=== PATIENT | female | born 1965 | race Caucasian/White ===

== ENCOUNTER 2017-04-10 00:31 | Emergency (ER) | payer MEDICAID, OTHER ==
[~2017-04-10] VITALS: Ht 165.1 cm; Wt 77.3 kg
[~2017-04-10 00:31] MED LIST: DIVA500T52 PO; ZIPR40CA2 PO
[2017-04-10] MEDS ORDERED: ARIP5TAB8 PO (00:39)
[2017-04-10 01:54] LABS: BASOPHILS # (AUTO) 0.04 K/uL (0.00-0.20); BASOPHILS % (AUTO) 0.6 % (0.0-2.0); EOSINOPHILS # (AUTO) 0.09 K/uL (0.00-0.70); EOSINOPHILS % (AUTO) 1.18 % (1.0-6.0); HEMATOCRIT 42.6 % (36-46); LYMPHOCYTES # (AUTO) 2.4 K/uL (1.0-4.8); LYMPHOCYTES % (AUTO) 33.2 % (22.0-44.0); MEAN CORPUSCULAR HEMOGLOBIN 29.6 pg (26.0-34.0); MEAN CORPUSCULAR HGB CONC 32.9 G/dL (31.0-37.0); MEAN CORPUSCULAR VOLUME 90 fL (80-100); MONOCYTES # (AUTO) 0.5 K/uL (0.1-1.0); MONOCYTES % (AUTO) 7.3 % (2.0-9.0); NEUTROPHILS # (AUTO) 4.2 K/uL (1.8-7.7); NEUTROPHILS % (AUTO) 57.7 % (40.0-70.0); PLATELET COUNT (AUTO) 261 K/uL (150-450); RED BLOOD CELL COUNT(AUTO) 4.74 MIL/uL (4.00-5.20); RED CELL DISTRIBUTION WIDTH 13.1 % (11.5-14.5)
[2017-04-10 02:06] LABS: AMPHET/METH SCREEN,URINE NEGATIVE (NEGATIVE); BARBITURATE SCREEN, URINE NEGATIVE (NEGATIVE); BENZODIAZEPINES SCREEN,URINE NEGATIVE (NEGATIVE); CANNABINOID SCREEN,URINE NEGATIVE (NEGATIVE); COCAINE SCREEN,URINE NEGATIVE (NEGATIVE); METHADONE SCREEN, URINE NEGATIVE (NEGATIVE); OPIATE SCREEN,URINE NEGATIVE (NEGATIVE)
[2017-04-10 02:09] LABS: ALANINE AMINOTRANSFERASE 48 U/L (12-78); ALKALINE PHOSPHATASE 81 U/L (46-116); ANION GAP 6 mmol/L (8-16); ASPARTATE AMINOTRANSFERASE 30 U/L (15-37); BILIRUBIN,TOTAL 0.8 mg/dL (0.1-1.0); CARBON DIOXIDE 31 mmol/L (22-29); CHLORIDE 103 mmol/L (98-107); CREATININE 0.86 mg/dL (0.60-1.30); GLOMERULAR FILTR. RATE CALC > 60 mL/min (>60); GLUCOSE,RANDOM 98 mg/dL (70-110); POTASSIUM 3.6 mmol/L (3.5-5.1); SODIUM SERUM 140 mmol/L (136-145); TOTAL PROTEIN, SERUM 7.6 g/dL (6.4-8.2); UREA NITROGEN, BLOOD 11 mg/dL (7-18)
[2017-04-10 02:12] LABS: PHENCYCLIDINE SCREEN,URINE NEGATIVE (NEGATIVE)
[2017-04-10] MEDS ORDERED: HALOPERIDOL 5 MG TABLET PO ONE (02:45)
[2017-04-10] MEDS ORDERED: LORazepam 2 MG TABLET PO ONE (02:45)
[2017-04-10 02:46] VITALS: BP 137/89
== END 2017-04-10 02:57 | disposition home or self-care (01) ==
LOC: EMS 00:31
DX: F20.0 Paranoid schizophrenia (principal); F22 Delusional disorders; F17.210 Nicotine dependence, cigarettes, uncomplicated; I10 Essential (primary) hypertension
CPT/HCPCS: 36415; 80053; 80307; 85025; 99284; 99406; G0480

== ENCOUNTER 2017-04-10 14:42 | Inpatient (IN) | payer MEDICAID, OTHER ==
[~2017-04-10] VITALS: Ht 154.9 cm; Wt 65.4 kg
[~2017-04-10 14:42] MED LIST changes: +ARIP5TAB8 PO
[2017-04-10] MEDS ORDERED: HALOPERIDOL 5 MG TABLET PO PRN (18:15)
[2017-04-10] MEDS ORDERED: LORazepam 2 MG TABLET PO PRN (18:15)
[2017-04-10] MEDS ORDERED: ZOLPIDEM TARTRATE 10 MG TABLET PO PRN (18:15)
[2017-04-10 18:35] VITALS: BP 147/88
[2017-04-10 19:00] VITALS: BP 138/88
[2017-04-10] MEDS ORDERED: PNEUMOCOCCAL VACCINE POLYVALENT 0.5 ML VIAL [PPSV23] IM ONE (19:00)
[2017-04-10] MEDS ORDERED: INFLUENZA VIRUS VACCINE QVS 2017-18 (3YR+)/PF 60 MCG/0.5 ML SYRINGE IM ONE (19:00)
[2017-04-10] MEDS: ARIPiprazole 10 MG TABLET PO SCH (20:14)
[2017-04-11 01:45] VITALS: BP 122/68
[2017-04-11 08:14] LABS: BASOPHILS % (AUTO) 0.5 % (0.0-2.0); EOSINOPHILS % (AUTO) 1.2 % (1.0-6.0); HEMATOCRIT 40.1 % (36-46); HEMOGLOBIN 13.6 g/dL (12.0-16.0); LYMPHOCYTES # (AUTO) 1.8 K/uL (1.0-4.8); MEAN CORPUSCULAR HEMOGLOBIN 30.2 pg (26.0-34.0); MEAN CORPUSCULAR HGB CONC 33.9 G/dL (31.0-37.0); MEAN CORPUSCULAR VOLUME 89 fL (80-100); MONOCYTES # (AUTO) 0.4 K/uL (0.1-1.0); MONOCYTES % (AUTO) 6.8 % (2.0-9.0); NEUTROPHILS # (AUTO) 3.1 K/uL (1.8-7.7); NEUTROPHILS % (AUTO) 57.5 % (40.0-70.0); PLATELET COUNT (AUTO) 253 K/uL (150-450); RED CELL DISTRIBUTION WIDTH 13.1 % (11.5-14.5)
[2017-04-11 08:16] LABS: HEMOGLOBIN A1C 6.1 % (4.5-6.2)
[2017-04-11 08:33] LABS: AMPHET/METH SCREEN,URINE NEGATIVE (NEGATIVE); APPEARANCE,URINE TURBID (CLEAR); BARBITURATE SCREEN, URINE NEGATIVE (NEGATIVE); BENZODIAZEPINES SCREEN,URINE NEGATIVE (NEGATIVE); CANNABINOID SCREEN,URINE NEGATIVE (NEGATIVE); COCAINE SCREEN,URINE NEGATIVE (NEGATIVE); GLUCOSE, URINE (UA) NEGATIVE (NEGATIVE); KETONES,URINE TRACE mg/dL (NEGATIVE); LEUKOCYTE ESTERASE ,URINE NEGATIVE (NEGATIVE); METHADONE SCREEN, URINE NEGATIVE (NEGATIVE); NITRATE,URINE NEGATIVE (NEGATIVE); OCCULT BLOOD,URINE NEGATIVE (NEGATIVE); OPIATE SCREEN,URINE NEGATIVE (NEGATIVE); PHENCYCLIDINE SCREEN,URINE NEGATIVE (NEGATIVE); PROTEIN,URINE NEGATIVE (NEGATIVE)
[2017-04-11 08:39] VITALS: BP 103/68
[2017-04-11 08:47] LABS: BILIRUBIN,URINE PRELIM. POSITIVE (NEGATIVE)
[2017-04-11 08:51] LABS: ALANINE AMINOTRANSFERASE 39 U/L (12-78); ALBUMIN 3.5 g/dL (3.4-5.0); ALKALINE PHOSPHATASE 68 U/L (46-116); ANION GAP 8 mmol/L (8-16); ASPARTATE AMINOTRANSFERASE 21 U/L (15-37); BILIRUBIN,TOTAL 0.6 mg/dL (0.1-1.0); CALCIUM, TOTAL 8.6 mg/dL (8.8-10.5); CARBON DIOXIDE 28 mmol/L (22-29); CHLORIDE 104 mmol/L (98-107); CHOL/HDL RATIO 2.3 (3.9-5.7); CHOLESTEROL 176 mg/dL (131-200); CREATININE 0.85 mg/dL (0.60-1.30); FREE T4 (FREE THYROXINE) 1.21 ng/dL (0.76-1.46); GLOMERULAR FILTR. RATE CALC > 60 mL/min (>60); GLUCOSE,RANDOM 102 mg/dL (70-110); HDL CHOLESTEROL 76 mg/dL (40-60); LDL CHOL (CALC.) 91 mg/dL (0-130); SODIUM SERUM 140 mmol/L (136-145); THYROID STIMULATING HORMONE 0.52 uIU/mL (0.36-3.74); TOTAL PROTEIN, SERUM 6.5 g/dL (6.4-8.2); TRIGLYCERIDES 44 mg/dL (15-150); UREA NITROGEN, BLOOD 16 mg/dL (7-18)
[2017-04-11 08:56] LABS: BACTERIA,URINE Few /HPF (None Seen); CALCIUM OXALATE CRYSTALS,UR Few /LPF (None Seen); RBC,URINE None Seen /HPF (0-2); SQUAMOUS EPITHELIAL CELL,UR Few /LPF (None Seen); WBC,URINE None Seen /HPF (0-5)
[2017-04-11 08:57] LABS: AMORPHOUS SEDIMENT,UR Many /LPF (None Seen)
[2017-04-11] MEDS: ARIPiprazole 10 MG TABLET PO SCH (08:57)
[2017-04-11] MEDS ORDERED: IBUPROFEN 400 MG TABLET PO PRN (12:00)
[2017-04-11] MEDS ORDERED: ACETAMINOPHEN 325 MG TABLET PO PRN (12:00)
[2017-04-11 16:17] VITALS: BP 129/74
[2017-04-12 01:03] VITALS: BP 102/63
[2017-04-12 08:05] VITALS: BP 105/74
[2017-04-12] MEDS ORDERED: ARIPiprazole 15 MG TABLET PO SCH (09:00)
[2017-04-12 16:09] VITALS: BP 116/74
[2017-04-13 00:20] VITALS: BP 112/68
[2017-04-13 08:19] VITALS: BP 110/65
[2017-04-13] MEDS: ARIPiprazole 10 MG TABLET PO SCH (08:36)
[2017-04-13 16:36] VITALS: BP 129/85
[2017-04-14 00:40] VITALS: BP 118/62
[2017-04-14 08:18] VITALS: BP 95/60
[2017-04-14] MEDS: ARIPiprazole 10 MG TABLET PO SCH (08:42)
[2017-04-14 16:16] VITALS: BP 120/75
[2017-04-15 00:30] VITALS: BP 113/69
[2017-04-15 08:33] VITALS: BP 115/72
[2017-04-15] MEDS ORDERED: ARIPiprazole LAUROXIL ER SUSPENSION 882 MG/3.2 ML SYRINGE IM SCH (09:00)
[2017-04-15] MEDS: ARIPiprazole 10 MG TABLET PO SCH (09:34)
[2017-04-15] MEDS ORDERED: ARIP882S IM (11:20)
[2017-04-15 16:07] VITALS: BP 114/68
[2017-04-16 02:48] VITALS: BP 121/70
[2017-04-16] MEDS: ARIPiprazole 10 MG TABLET PO SCH (09:00)
[2017-04-16 10:25] VITALS: BP 123/73
[2017-04-16 16:00] VITALS: BP 102/68
[2017-04-17 01:03] VITALS: BP 112/69
[2017-04-17 09:21] VITALS: BP 123/66
[2017-04-17] MEDS: ARIPiprazole 10 MG TABLET PO SCH (09:42)
[2017-04-17 16:00] VITALS: BP 122/78
[2017-04-18] VITALS: BP 109/62
[2017-04-18] MEDS: ARIPiprazole 10 MG TABLET PO SCH (08:33)
[2017-04-18 08:39] VITALS: BP 119/76
[2017-04-18 16:00] VITALS: BP 110/70
== END 2017-04-18 17:10 | disposition home or self-care (01) | DRG 750 ==
LOC: B2S 17:05
PROVIDERS: ADMIT Psychiatry & Neurology Psychiatry; ATTEND Psychiatry & Neurology Psychiatry
DX: F20.0 Paranoid schizophrenia (principal); E83.51 Hypocalcemia; F41.9 Anxiety disorder, unspecified; Z91.19 Patient's noncompliance with other medical treatment and regimen; F17.200 Nicotine dependence, unspecified, uncomplicated; Z28.21 Immunization not carried out because of patient refusal
CPT/HCPCS: 80307; 83036; 84439; 84443